=== PATIENT | male | born 1965 | race Caucasian/White ===

== ENCOUNTER 2021-09-19 14:53 | Emergency (ER) | payer BC ==
[~2021-09-19] VITALS: Ht 177.8 cm; Wt 154.2 kg
== END 2021-09-19 17:43 | disposition home or self-care (01) ==
LOC: ED 14:53
DX: S49.91XA Unspecified injury of right shoulder and upper arm, initial encounter (principal); Z88.7 Allergy status to serum and vaccine; W00.0XXA Fall on same level due to ice and snow, initial encounter; Y93.89 Activity, other specified; Y92.89 Other specified places as the place of occurrence of the external cause; Y99.8 Other external cause status